=== PATIENT | female | born 1990 | race Caucasian/White ===

== ENCOUNTER 2016-05-24 09:47 | Emergency (ER) | payer MEDICAID ==
[2016-05-24 12:31] LABS: Bacteria,Urine 1+ /HPF (Negative); Bilirubin,Urine NEG (Negative); Blood,Urine NEG (Negative); Ketones,Urine NEG (Negative); Leukocyte Esterase,Urine MOD (Negative); Mucus,Urine 1+ /HPF; Nitrite,Urine NEG (Negative); Protein,Urine <15 mg/dL mg/dL (Negative); Urobilinogen,Urine < 2.0 mg/dL (<2.0)
--- NOTE | 2016-05-24 16:35 | Emergency Department Report ---
HPI - General Chief Complaint: Urogenital-Female Time Seen by Provider: 05/24/16 16:14 - HPI HPI: This is a 25-year-old Afro-[place] female presents to the emergency department with the complaint of a one-week history of some different vaginal sensations including irritation, white discharge, light spotting, itching and burning. Since yesterday however the patient has had some dark red bleeding and some cramping. All the symptoms began after the patient had a cervical cerclage placed 1 week ago by her specialist, Dr. Jameson, secondary to a history of cervical incompetency. The patient is about 16 weeks and with one previous miscarriage at 16 weeks secondary to that cervical incompetence. She has some mild abdominal cramping but otherwise denies any significant abdominal pain. She denies any fever, nausea, vomiting, chest pain or shortness of breath. Patient was on a three-day course of indomethacin for inflammation for her cramps and status post cerclage and it did help with her discomfort but the medication ran out a few days ago and the symptoms have returned. Her current NUCLEAR RADIATION ENGINEER is Dr. Tipton at [facility] Past Medical Hx - Past Medical History Previous Medical History?: Yes Additional medical history: "short cervix" and high risk . thrombocytopenia - Surgical History Past Surgical History?: Yes Additional Surgical History: 2012. cervical cerclage - Social History Smoking Status: Never Smoker Substance Use Type: None - Medications Home Medications: Home Medications Medication Instructions Recorded Confirmed Last Taken Type Nitrofurantoin Pope/M-Cryst 100 mg PO Q12HR #10 capsule 03/29/16 Unknown Rx [Macrobid CAP] ED Review of Systems ROS: Stated complaint: VAGINAL BLEEDING Other details as noted in HPI Comment: All other systems reviewed and negative Constitutional: denies: chills, fever Eyes: denies: eye pain, eye discharge, vision change ENT: denies: ear pain, throat pain Respiratory: denies: cough, shortness of breath, wheezing Cardiovascular: denies: chest pain, palpitations Gastrointestinal: abdominal pain (cramping). denies: nausea, vomiting Genitourinary: other (vag bleed, irritation). denies: urgency, dysuria, discharge Musculoskeletal: denies: back pain, joint swelling, arthralgia Skin: denies: rash, lesions Neurological: denies: headache, weakness, paresthesias Physical Exam - Physical Exam Vital Signs: Vital Signs 05/24/16 05/24/16 10:19 16:23 Temperature 97.8 F Pulse Rate 79 Respiratory 16 18 Rate Blood Pressure 121/82 O2 Sat by Pulse 100 Oximetry Physical Exam: GENERAL: The patient is well-developed well-nourished. HEENT: Normocephalic. Atraumatic. Extraocular motions are intact. Patient has moist mucous membranes. Pupils equal reactive to light bilaterally. NECK: Supple. Trachea is midline. CHEST/LUNGS: Clear to auscultation. There is no respiratory distress noted. HEART/CARDIOVASCULAR: Regular. There is no tachycardia. There is no gallop rub or murmur. ABDOMEN: Abdomen is soft, nontender. No guarding rebound tenderness. Gravid uterus palpable a few Center meters below the umbilicus. Patient has normal bowel sounds. There is no abdominal distention. SKIN: Skin is warm and dry. NEURO: The patient is awake, alert, and oriented. The patient is cooperative. The patient has no focal neurologic deficits. The patient has normal speech. MUSCULOSKELETAL: There is no tenderness or deformity. There is no limitation range of motion. There is no evidence of acute injury. ED Course Vital Signs 05/24/16 05/24/16 10:19 16:23 Temperature 97.8 F Pulse Rate 79 Respiratory 16 18 Rate Blood Pressure 121/82 O2 Sat by Pulse 100 Oximetry ED Medical Decision Making - Radiology Data Radiology results: report reviewed Transvaginal/ ultrasound shows a live intrauterine at about 16 weeks. There is a closed appearance to the cervix. There appears to be a normal amount of amniotic fluid. - Medical Decision Making 25 year old female presents with a one-week history of some different sensations vagina as well as some abdominal cramping. Patient had a beta hCG level that appeared appropriate but is not a lab it is useful at this stage in her . Urinalysis did not show any urinary tract infection. The transvaginal/ ultrasound shows a live intrauterine at about 16 weeks. Since the patient recently had a cervical cerclage, and there is not a large amount of bleeding and/or discharge per the patient, I did not feel that a speculum pelvic exam was necessary at this time. She has good follow-up with Dr. 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 She might try 1 or 2 doses of over -the-counter Monistat for possible vaginal yeast infection. Otherwise she will follow-up with her NUCLEAR RADIATION ENGINEER physicians and will return to the ER with any worsening of her symptoms or any acute distress. - Differential Diagnosis , miscarriage, fibroids, UTI, yeast infection Critical Care Time: No Critical care attestation.: If time is entered above; I have spent that time in minutes in the direct care of this critically ill patient, excluding procedure time. ED Disposition Clinical Impression: Vaginal irritation Qualifiers: Weeks of gestation: 16 weeks Qualified Code(s): Z3A.16 - 16 weeks gestation of Disposition: DISCHARGED TO HOME OR SELFCARE Is pt being admited?: No Condition: Stable Instructions: (ED) Additional Instructions: Please follow-up with your NUCLEAR RADIATION ENGINEER on Friday. Return to the emergency department with any worsening of your symptoms or any acute distress. Referrals: PRIMARY CARE, [Primary Care Provider] - 3-5 Days [facility] [Provider Group] - 3-5 Days Time of Disposition: 18:48
--- NOTE | 2016-05-24 18:39 | Ultrasound Report ---
FINAL REPORT EXAM: US OB \T\gt; = 14 WEEKS FETUS HISTORY: bleeding COMPARISONS: None. FINDINGS: Transabdominal grayscale, color and M-mode 2nd trimester ultrasound Single living intrauterine with recorded cardiac activity of 143 beats per minute. Posterior placenta. Amniotic fluid volume is subjectively normal. The cervix appears closed and measures approximately 4.5 cm in length. Biparietal diameter is 3.7 cm. Head circumference is 13.5 cm. Abdominal circumference is 10.7 cm. Femoral length is 2.3 cm. Composite of the above measurements results in estimated gestational age of 17 weeks 0 days, which corresponds to delivery date of 11/01/2016 and is concordant with prior established dating. IMPRESSION: Single living intrauterine with subjectively normal amniotic fluid volume and closed appearance of the cervix, which measures up to 4.5 cm in length. Follow-up is recommended including detailed anatomy scan at 20 weeks gestational age.
[2016-05-24 19:09] VITALS: BP 116/71
== END 2016-05-24 19:07 | disposition home or self-care (01) ==
LOC: ED 09:47
DX: O26.892 Other specified pregnancy related conditions, second trimester (principal); N89.8 Other specified noninflammatory disorders of vagina; Z3A.16 16 weeks gestation of pregnancy
CPT/HCPCS: 36415; 76805; 81001; 84702